=== PATIENT | male | born 2005 | race Caucasian/White ===

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

== ENCOUNTER 2025-01-20 16:13 | Outpatient (CLI) | payer BC, SELFPAY ==
--- NOTE | ~2025-01-20 | XR_ITS ---
EXAMINATION: XR shoulder RT min 2V DATE: 01/20/2025 16:33 INDICATION: Right shoulder pain. TECHNIQUE: 4 views of right shoulder were obtained. COMPARISON: Right shoulder radiographs 03/29/2023 FINDINGS: Alignment is normal. No fracture. Joint spaces are normal. IMPRESSION: 1. Normal right shoulder. Reviewed, dictated and finalized at location A. GE REGISTER NURSE IMPRESSION: 1. Normal right shoulder.
== END 2025-01-20 16:14 | disposition home or self-care (01) ==
LOC: MICIMG 16:16
PROVIDERS: PCP Family Medicine; Visit Provider Nurse Practitioner Family
DX: S49.91XA Unspecified injury of right shoulder and upper arm, initial encounter (principal); X58.XXXA Exposure to other specified factors, initial encounter
CPT/HCPCS: 73030

== ENCOUNTER 2025-07-13 21:17 | Emergency (ER) | payer BC, SELFPAY ==
[2025-07-13] VITALS (11 sets, daily range): BP systolic 126–153; BP diastolic 54–85; PULSE 105–129; RESP 9–18; TEMP 36.9; O2SAT 97–100
--- NOTE | ~2025-07-13 | XR_ITS ---
EXAM: XR pelvis 1-2V DATE: 07/13/2025 21:44 HISTORY: trauma . COMPARISON: None available. FINDINGS: Slight rotation. Normal mineralization. No fracture or dislocation. No lytic or blastic les ion. Joint spaces are maintained. No erosion or periosteal change. Soft tissues within normal limits. IMPRESSION: No acute osseous finding in the pelvis. Reviewed, dictated and finalized at location K.
--- NOTE | ~2025-07-13 | CT_ITS ---
EXAMINATION: CT cervical spine wo con DATE: 07/13/2025 21:51 INDICATION: trauma, neck pain TECHNIQUE: Computed tomography (CT) of the cervical spine was performed without intravenous contrast. Automated exposure control and iterative reconstruction technique were employed. The dose-length pro duct was 524.30 mGy-cm. COMPARISON: None. FINDINGS: Vertebral Body Alignment: Intact. Craniocervical and atlantoaxial alignment: No significant degenerative change. Alignment intact. Osseous structures/fracture: No evidence of a lytic or blastic process in the visualized spine. No e vidence of acute fracture. Cervical soft tissues: The paraspinal soft tissues planes are maintained. Degenerative changes: No significant degenerative changes. IMPRESSION: No acute fracture or traumatic malalignment in the cervical spine. Reviewed, dictated and finalized at location K.
--- NOTE | ~2025-07-13 | CT_ITS ---
EXAMINATION: CT brain wo con DATE: 07/13/2025 21:50 INDICATION: head trauma . TECHNIQUE: Computed tomography (CT) of the head was performed without intravenous contrast. The mA wa s adjusted according to patient size. Iterative reconstruction technique was employed. The dose-lengt h product was 681.00 mGy-cm. COMPARISON: None. FINDINGS: No acute intracranial hemorrhage or extra-axial fluid collection. No hydrocephalus, mass, or herniation. No acute ischemic infarct. Unremarkable dural venous sinus attenuation. No acute osseous abnormality. The aerated spaces are clear. IMPRESSION: No acute intracranial process. Reviewed, dictated and finalized at location K.
--- NOTE | ~2025-07-13 | XR_ITS ---
EXAMINATION: XR chest 1V portable Exam Date/Time: 07/13/2025 21:35 CDT HISTORY: trauma Comparison: None. RESULT: Lines, tubes, and devices: None. Lungs and pleura: Clear. Cardiomediastinal silhouette: Normal. Other: No acute osseous or upper abdominal finding. IMPRESSION: No acute cardiopulmonary process. Reviewed, dictated and finalized at location K.
[2025-07-13 22:01] LABS: Hematocrit 43.6 % (42.0-52.0); Hemoglobin 14.3 g/dL (14.0-18.0); Immature Granulocyte Percent A 0.3 % (0-0.5); Lymphocytes Absolute Auto 1.72 K/mm3 (0.9-3.2); Mean Corpuscular HGB Conc 32.8 g/dl (32-36); Mean Corpuscular Hemoglobin 27.7 pg (26-34); Mean Corpuscular Volume 84.5 fl (80-100); Nucleated Red Blood Cells Absolute Auto 0.000 K/mm3 (0.0-0.012); Nucleated Red Blood Cells Perc 0.0 % (0.0-0.2); Platelet Count Result 200 k/mm3 (150-375); Red Blood Count 5.16 M/mm3 (4.6-6.20); White Blood Count 6.3 K/mm3 (4.5-10.0)
[2025-07-13] MEDS: LACTATED RINGERS 1,000 ML 999 ML IV CONT (22:01)
[2025-07-13] MEDS: fentaNYL CITRATE INJ (*CRX) 100 MCG/2 ML VIAL IV PUSH (22:01)
--- OUTSIDE RECORDS SUMMARY | 2025-07-13 22:03 | XMS_ITS | Continuity of Care Document ---
Author Organization [facility]. If a dditional information is needed, contact Health Information Management at [phone] Address [address] [place] [address] Phone Care Team Providers Care Motion Graphics Artist Name Role Phone Unavailable Unavailable Unavailable Unavailable Unavailable Unavailable Unavailable Unavailable Unavailable Unavailable Unavailable Unavailable Unavailable Unavailable Unavailable Unavailable Unavailable Unavailable Unavailable Unavailable Unavailable Unavailable Unavailable Unavailable Problems Viral gastroenteritis Onset:29-Sep-2024 Demetrio MUELLER Nausea, vomiting and diarrhe a Onset:29-Sep-2024 Demetrio MUELLER Mental Status Cognitive function finding 29-Sep-2024 Allergies and Adverse Reactions No Known Allergies(Allergy) Onset: 29-Sep-2024 Medications ondansetron 4 MG Disintegrat ing Oral Tablet;4 MILLIGRAM PO Q8HR PRN Start:30-Sep-2024 Comments:4 MG PO Q8HR PRN As Needed for Nausea, vomiting 2 ML dicyclomine hydrochlori de 10 MG/ML Injection [Bentyl];20 MILLIGRAM X1ED Quantity:1 Demetrio MUELLER Start:21-Mcu-4581Oah:2023 Comments:[id number] Administration Instructions:FOR INTRAMUSCULAR (IM) USE ONLY ondansetron 2 MG/ML Injectab le Solution [Zofran];4 MILLIGRAM X1ED Quantity:1 Gian MUELLER Start:82-Wpm-2272Ycb:2023 Comments:[id number] 10 ML sodium chloride 9 MG/M L Injection;[id number] Administration Instructions:IV PUSH OVER AT LEAST 2 MINUTES Gian MUELLER Start:35-Uhr-3313Hwr:2023 Comments:[id number] Administration Instructions:IV PUSH OVER AT LEAST 2 MINUTES Social History Smoking Status Never smoked tobacco Recorded: 30-Oct-2024 Results UA WITH CX IF INDICATED Ordered On:29-Sep-2024 C omments:Indication for culture: RiskForSepsis-no oth src 29-Sep-2024 19:28 UA APPEARANCEClear Range:CLEAR UA BILIRUBIN DIPSTICKNEGATIVE Ra nge:NEGATIVE UA BLOOD DIPSTICKNEGATIVE Range: NEGATIVE UA COLORYellow Range:YELLOW UA GLUCOSE DIPSTICKNEGATIVEmg/dL Range:NEGATIVE mg/dL UA KETONE LHAUSCRW82 (2+)mg/dL(Abnormal) Range:NEGATIVE mg/dL UA LEUKOCYTE ESTERAS E DIPSTICKNEGATIVE Range:NEGATIVE UA NITRITE DIPSTICKNEGATIVE Rang e:NEGATIVE UA PH DIPSTICK6.0 Range:5-6 UA PROTEIN DIPSTICKNEGATIVEmg/dL Range:NEGATIVE mg/dL UA SPECIFIC GRAVITY1.025 Range:1 .01-1.025 UMICR REQUIRED?NO UA UROBILINOGEN DIPSTICK1.0mg/dL Range:0.2mg/dL-1mg/dL CBC W/DIFF Ordered On:29-Sep-2024 19:29 BASOPHIL #0.0210*3/uL(Normal) Range:010*3/uL-0.110*3/uL BASOPHIL %0.4% EOSINOPHIL #0.0310*3/uL(Normal) Range:010*3/uL-0.510*3/uL EOSINOPHIL %0.6% WMFMMOZSLH89.2%(Normal) Range:38 .5%-48.5% BAPRFAPGNR75.0g/dL(Normal) Range :12.6g/dL-17.3g/dL IMMATURE GRANULOCYTE #0.0110*3/uL IMMATURE GRANULOCYTE %0.2%(Normal) Range:0%-0.6% LYM #0.6610*3/uL(Low) Range:0.81 0*3/uL-3.310*3/uL LYMPHOCYTE %13.1% MEAN CELL HGB27.6pg(Normal) Rang e:26.6pg-32.7pg MEAN CELL HGB JKBWZHVMEZJUT78.0g/dL(Normal) Range:32.4g/dL-35.6g/dL MEAN CELL DWFKYI31.1fL(Normal) R david:80.8fL-97.7fL MONOCYTE #0.5310*3/uL(Normal) Ra nge:0.310*3/uL-0.910*3/uL MONOCYTE %10.6% MEAN PLATELET SLZLVF17.3fL(High) Range:6.8fL-10.2fL YESSI#3.7710*3/uL(Normal) Range:2. 110*3/uL-7.110*3/uL YESSI%75.1% NUCLEATED RBC#0.0010*3/uL NUCLEATED RBC%0.0{/100_WBCs} Ran ge:NONE SEEN /100 WBC PLATELET CRFQX62702*3/uL(Normal) Range:63233*3/uL-83881*3/uL RED BLOOD CELL5.0810*6/uL(Normal) Range:4.1910*6/uL-5.5210*6/uL RDW CV13.4%(Normal) Range:12.4%- 15.6% WHITE BLOOD CELL5.0210*3/uL(Normal) Range:4.310*3/uL-10.310*3/uL BASIC METABOLIC PROF W/REFLEX Ordered On:29-Sep-2024 19:40 ANION GAP6(Normal) Range:5-15 BLOOD UREA MWYSFNIR25tq/dL(Normal) Range:7mg/dL-25mg/dL CALCIUM9.0mg/dL(Normal) Range:8. 5mg/dL-10.1mg/dL UKILOFBU70cifk/L(Normal) Range:9 8mmol/L-107mmol/L CARBON HANPQSN79.6mmol/L(Normal) Range:21mmol/L-32mmol/L ESTIMATED CREATININE XFJCA353.0mL/min CREAT0.87mg/dL(Normal) Range:0.7 mg/dL-1.3mg/dL GFR CKD-EPI 4638857.475mL/min Ra nge:59mL/min-0 XUOYDQD096(Normal) Range:70-110 POTASSIUM3.4mmol/L(Low) Range:3. 5mmol/L-5.1mmol/L RKBNAY301rycg/L(Normal) Range:13 6mmol/L-145mmol/L LIVER PROFILE Ordered On:29-Sep-2024 19:40 ALBUMIN3.8g/dL(Normal) Range:3 .4g/dL-5g/dL ALK OXBC34B/L(Normal) Range:45U/ L-117U/L SGPT/ALT27U/L(Normal) Range:16U/ L-63U/L SGOT/AST23U/L(Normal) Range:15U/ L-37U/L BILIRUBIN DIRECT0.2mg/dL(Normal) Range:0mg/dL-0.3mg/dL T BILI0.6mg/dL(Normal) Range:0mg /dL-1mg/dL T PROTEIN7.0g/dL(Normal) Range:6 .4g/dL-8.2g/dL LIPASE Ordered On:29-Sep-2024 19:40 SXOPZW98Y/L(Normal) Range:16U/ L-77U/L Comments:NEW REFERENCE RANGE MAGNESIUM Ordered On:29-Sep-2024 19:40 MAGNESIUM1.9mg/dL(Normal) Rang e:1.8mg/dL-2.4mg/dL Vital Signs 29-Sep-2024 20:00 Pulse67 Comments:67 O2 SAT98% Comments:98 BP Qfmslevk342pc[Hg] Comments:13 5 BP Btxuwvnis56dw[Hg] Comments:65 29-Sep-2024 19:30 Pulse68 Comments:68 O2 SAT98% Comments:98 BP Witkuham439fv[Hg] Comments:13 9 BP Sylofvjmc21bo[Hg] Comments:64 29-Sep-2024 19:17 Pulse64 Comments:64 O2 SAT95% Comments:95 BP Iirtltck271zj[Hg] Comments:14 0 BP Neezoehus42dp[Hg] Comments:62 29-Sep-2024 17:53 TEMP KPJRXDZ51.8c Comments:36.8 Pulse97 Comments:97 Respiratory Rate18 Comments:18 O2 SAT98% Comments:98 BP Fykiklxc949vv[Hg] Comments:12 6 BP Ofqsytefv69yl[Hg] Comments:78 Bqvgxt134ma Comments:188.000 Xpmiwy40.4kg Comments:79.400 29-Sep-2024 17:53 BMI22.4kg/m2 Comments:22.4 Encounters Emergency Encounter Reason:PUI-ABDOMINAL OAMG-WLJESDRH-PFFBPVKD Encounter Diagnosis:Cough,Viral intestinal infection, unspecified 29-Sep-2024 17:[id number] 20:20 May Kent MD (Attending) [facility] Discharge Disposition:Discharged to home or self care (routine discharge) Demetrio MUELLER-29-Sep-2024 [facility] ([facility])EMERGENCY PROVIDER REPORTREPORT#:[id number] REPORT STATUS: SignedDATE:09/29/24 TIME: 1848PATIENT: WILBERT MATIAS UNIT #: [id number]#: [id number] ROOM/BED:: 05 LOCATION: FSEDAGE: 19 SEX: M PCP: NO PRIMARY OR FAMILY PHYSICIANSERVICE AUTHOR: Sabrina Lai SRV REP SRV TM: 1848* ALL edits or amendments must be made on the electronic/computer document *SABRINA LAI 09/29/241848:HPI-General IllnessFree Text HPI NotesFree Text HPI NotesHPI 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 Also having mild cough and congestion. 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 Denies fever,urinary changes, bloody stool/emesis, chest pain, SOB, sore throat, flank pain,or lethargy. Denies known sick contacts. Denies diet changes or recent travel.Denies trauma.Physical exam Gene ral: Awake, alert, and oriented. No acute distress. Well-appearing andwell- hydrated.Skin: Warm, dry, and intact. Appropriate color. Nailbeds pink withoutcyanosis or clubbingHead: Normocephalic and atraumatic.Eyes: Conjunctivae clear without exudate or hemorrhage, PEERLENT: External ear intact without skin changes. Gross hearing intact. Externalnose intact. Moist mucous membranes. No difficulty swallowing secretions.Neck: The neck is supple. Trachea is midline.Cardio/pulmonary: No signs of respiratory distress. Patient is speaking incomplete sentences without difficulty. Normal S1 and S2. Normal heart rate andrhythm. Lungs CTA bilaterally without wheezes, rhonchi, or stridor.MSK: Bilateral upper and lower extremities are atraumatic in appearance. Noabnormal movement noted.Neuro: Motor function is normal. Cerebellar function intact. Memory andthought process intact. No gait abnormalities.Psych: Appropriate mood and affect. No visual or auditory hallucinations.Abdomen: Mild epigastric TTP. Soft without distention. No pulsatile orpalpable masses. No overlying skin changes. No guarding, rigidity, or rebound. No peritoneal signs. Negative Blancas sign. No McBurney's point TTP. No CVATbilaterally.Medical decision making Differential diagnoses: Acute viral syndrome, gastroenteritis, acute abdomen,acute appendicitis, intra- abdominal abscess, ischemia, dehydration, electrolyteimbalanceBenign abdominal exam. Patient is nontoxic and well-appearing with normal vitalsigns.. Urine and Bloodwork negative for acute finding. No indication forimaging, suspect viral gastroenteritis. IV Zofran given, feeling much better re-evaluation and p.o. challenge passed. Discussed possible sx etiologies and allresults with pt. VS stable and pt in NAD upon discharge. Low clinical suspicionfor sepsis, acute abdomen, abdominal perforation, ischemia, or abdominalabscess. Discussed PCP follow up regarding these sx and return to ED ifworsening sx. Strict return precautions discussed. All questions answered andpt confirmed understanding.Documentation for this chart was dictated and transcribed using the [employer] the Bet system. Dictation occurs and grammatical errors may have occurredduring the electronic transcriptions process. Frequently, incorrect pronounsmay be used. The medical provider for this chart reserves the right to correcterrors at a later time as necessary. If any clarifications are needed regardingthe documentation of care provided to this patient, please contact the medicalprovider for this patient.GeneralInitial Greet Date/Time 09/29/241736PresentationChief Complaint __ (N/V/D), Abdominal painPast Medical History - AdultStated Complaint PUI-ABDOMINAL AMQI-MHPKCZHT-TLAVKQHBZmwlmqegwHvltf Allergies:No Known Allergies (09/29/24)Smoking status for patients 13 years old or older: Never SmokerPhysical ExamVital SignsVital SignsFirst Documented: Result Date Time Pulse Ox 98 09/29 1753 B/P 126/78 09/29 1753 B/P Mean 93.9 09/29 1753 O2 Delivery Room air 09/29 1753 Temp 98.2 09/29 1753 Pulse 97 09/29 1753 Resp 18 09/29 1753Last Documented: Result Date Time Pulse Ox 98 09/29 2000 B/P 135/65 09/29 2000 B/P Mean 92 09/29 2000 Pulse 67 09/29 2000 O2 Delivery Room air 09/29 1753 Temp 98.2 09/29 1753 Resp 18 09/29 1753Review of Vital Signs ReviewedInterpretation DiagnosticsLab Results InterpretationResultsLaboratory Tests09/29/241904:[Embedded Image Not Available]Laboratory Tests: 09/29 190 Chemistry Sodium (136 - 145 mmol/L) 137 Potassium (3.5 - 5.1 mmol/L) 3.4 L Chloride (98 - 107 mmol/L) 99 Carbon Dioxide (21.0 - 32.0 MMOL/L) 31.6 Anion Gap (5 - 15) 6 BUN (7 - 25 MG/DL) 13 Creatinine (0.70 - 1.30 MG/DL) 0.87 Estim Creat Clear Calc (mL/min) 158.0 Est GFR (CKD-EPI) (>59 mL/min) 127.475 Glucose (70 - 110) 100 Calcium (8.5 - 10.1 MG/DL) 9.0 Magnesium (1.8 - 2.4 MG/DL) 1.9 Total Bilirubin (0.0 - 1.0 mg/dL) 0.6 Direct Bilirubin (0.0 - 0.3 MG/DL) 0.2 AST (15 - 37 UNITS/L) 23 ALT (16 - 63 UNITS/L) 27 Alkaline Phosphatase (45 - 117 UNITS/L) 83 Total Protein (6.4 - 8.2 g/dL) 7.0 Albumin (3.4 - 5.0 G/DL) 3.8 Lipase (16 - 77 U/L) 17 Hematology WBC (4.30 - 10.30 10*3/uL) 5.02 RBC (4.19 - 5.52 10*6/uL) 5.08 Hgb (12.6 - 17.3 g/dL) 14.0 Hct (38.5 - 48.5 %) 41.2 MCV (80.8 - 97.7 fL) 81.1 MCH (26.6 - 32.7 pg) 27.6 MCHC (32.4 - 35.6 g/dL) 34.0 RDW Coeff of Wilder (12.4 - 15.6 %) 13.4 Plt Count (151 - 324 10*3/uL) 200 MPV (6.8 - 10.2 fL) 10.3 H Immature Gran % (Auto) (0.0 - 0.6 %) 0.2 Neut % (Auto) (%) 75.1 Lymph % (Auto) (%) 13.1 [place] % (Auto) (%) 10.6 Eos % (Auto) (%) 0.6 Baso % (Auto) (%) 0.4 Nucleat RBC Rel Count (NONE SEEN /100 WBC) 0.0 Neut # (Auto) (2.10 - 7.10 10*3/uL) 3.77 Lymph # (Auto) (0.80 - 3.30 10*3/uL) 0.66 L [place] # (Auto) (0.30 - 0.90 10*3/uL) 0.53 Eos # (Auto) (0.00 - 0.50 10*3/uL) 0.03 Baso # (Auto) (0.00 - 0.10 10*3/uL) 0.02 Immature Gran # (Auto) (10*3/uL) 0.01 Absolute Nucleated RBC (10*3/uL) 0.00 Urines Urine Color (YELLOW) Yellow Urine Appearance (CLEAR) Clear Urine pH (5.0 - 6.0) 6.0 Ur Specific [place] (1.010 - 1.025) 1.025 Urine Protein (NEGATIVE mg/dL) NEGATIVE Urine Glucose (UA) (NEGATIVE mg/dL) NEGATIVE Urine Ketones (NEGATIVE mg/dL) 40 (2+) H Urine Blood (NEGATIVE) NEGATIVE Urine Nitrite (NEGATIVE) NEGATIVE Urine Bilirubin (NEGATIVE) NEGATIVE Urine Urobilinogen (0.2 - 1.0 mg/dL) 1.0 Ur Leukocyte Esterase (NEGATIVE) NEGATIVE Ur Microscopic Indic NORe-Evaluation MDMED CourseMedication(s) OrderedMedication(s) Ordered:Autonomic Drugs Sig/Kiara Start time Last Medication Dose Route Stop Time Status Admin Dicyclomine HCl 20 MG X1ED ONE 09/29 1812 DC 09/29 IM 09/29 1813 191Gastrointestinal Drugs Sig/Kiara Start time Last Medication Dose Route Stop Time Status Admin Famotidine 20 MG X1ED ONE 09/29 1754 DC 09/29 Sodium Chloride 10 ML IV 09/29 Ondansetron HCl 4 MG X1ED ONE 09/29 175 DC 09/29 IV 09/29 1755 191Patient Discharge DepartureVital Signs/ConditionVital SignsFirst Documented: Result Date Time Pulse Ox 98 09/29 1753 B/P 126/78 09/29 1753 B/P Mean 93.9 09/29 1753 O2 Delivery Room air 09/29 1753 Temp 98.2 09/29 1753 Pulse 97 09/29 1753 Resp 18 09/29 1753Last Documented: Result Date Time Pulse Ox 98 09/29 2000 B/P 135/65 09/29 2000 B/P Mean 92 09/29 2000 Pulse 67 09/29 2000 O2 Delivery Room air 09/29 1753 Temp 98.2 09/29 1753 Resp 18 09/29ll vital signs available at the time of this entry have been reviewed.Clinical ImpressionClinical ImpressionPrimary Impression: Viral gastroenteritisSecondary Impressions: Nausea vomiting and diarrheaDisposition DecisionDischarge )( Discharged to Home Yes )( Time 2003 )( Date 09/29/24Discharge/Care PlanCounseled Regarding Diagnosis, Lab results, Prescriptions, Need for follow-up,When to return to ED(Auto) PrescriptionsCurrent Visit ScriptsOndansetron (Zofran Odt) 4 MG PO Q8HR PRN PRN Nausea, vomiting Ondansetron (Zofran Odt) 4 MG PO Q8HR PRN PRN Nausea, vomiting #30 TABDICYCLOMINE (BENTYL) 20 MG PO QID PRN abdominal cramping DICYCLOMINE (BENTYL) 20 MG PO QID PRN abdominal cramping #20 TABPatient Instructions ED Gastroenteritis, Viral (Adult), ED Standard Educationfor ...Additional InstructionsPlease take any medications as prescribed. Discussed proper diet and fluidintake.Tylenol and Motrin as needed for pain and fever as directed by your familyphysician. Please do no take more than 1000mg tylenol every 8 hours or 800mgibuprofen every 8 hours. May alternate tylenol and ibuprofen every 4 hours asneeded.Bananas, rice, apples, toast, and clear liquids as needed for indigestion,nausea, vomiting, or diarrhea. Please drink plenty of fluids. OTC Gas-X, Tums,Antacids, or Pepto-bismol as directed for indigestion. Laxatives, stoolsofteners, and fiber supplementation as directed for constipation.If you develop worsening symptoms, please seek further medical attention. Redflags include: severe worsening abdominal pain, chest pain, trouble breathing,fever>100.4, incontinence, dark/bloody stools, bloody urine, intractiblevomiting, dizziness, loss of consciousness, palpitations, or signs ofdehydration.Please call your family physician and inform them regarding your ED visit today.This visit should not be intended as a replacement for a regular examinationwith your doctor. We answered all questions today during this visit and thepatient confirmed agreement and understanding of treatment plan.Departure FormsRETURN TO WORK/YANIRA SUAREZ MD 09/30/24 0718:Patient Discharge DepartureDischarge/Care PlanReferralsProvider Group: [facility] Address: [address] [place] [address]. [place], [place] [address]Nahhiarnefk Physician Note MidLv Saw Pt AloneI have reviewed the PA/CORRECTIONAL FOOD SERVICE SUPERVISOR's note and plan of care. I was available forconsultation as needed at all times during the patient's visit in the emergencydepartment. I agree with the clinical impression, plan and disposition. at 2006 at 0719RPT #: [id number] OF REPORT Plan of Treatment Please take any medications as prescribed. Discussed proper diet and fluid intake. Tylenol and Motrin as needed for pain and fever as directed by your family physician. Please do no take more than 1000mg tylenol every 8 hours or 800mg ibuprofen every 8 hours. May alternate tylenol and ibuprofen every 4 hours as needed. Bananas, rice, apples, toast, and clear liquids as needed for indigestion, nausea, vomiting, or diarrhea. Please drink plenty of fluids. OTC Gas-X, Tums, Antacids, or Pepto-bismol as directed for indigestion. Laxatives, stool softeners, and fiber supplementation as directed for constipation. If you develop worsening symptoms, please seek further medical attention. Red flags include: severe worsening abdominal pain, chest pain, trouble breathing, fever>100.4, incontinence, dark/bloody stools, bloody urine, intractible vomiting, dizziness, loss of consciousness, palpitations, or signs of dehydration. Please call your family physician and inform them regarding your ED visit today. This visit should not be intended as a replacement for a regular examination with your doctor. We answered all questions today during this visit and the patient confirmed agreement and understanding of treatment plan. Future Tests Future scheduled test information is unavailable Pending Tests Pending diagnostic test information is unavailable Future Visits Future appointment information is unavailable Referrals to Other Providers Reason for Referral Referral Start Date Provider Provider Contact Information Provider Address [facility] Work Phone: [address] [place] [phone] Future Procedures Future procedure information is unavailable Future Medications Future medication information is unavailable Patient Instructions Instruction Admit Date ED Standard Education for ... September 292023 4:29pm ED Gastroenteritis, Viral (Adult) Octobe r 2023 4:29pm Assessments Diagnosis Onset Date Resolution Status Admit Date Viral gastroenteritis Active Aug gary 2023 4:29pm Nausea vomiting and diarrhea Active September 29, 2024 4:29pm
--- OUTSIDE RECORDS SUMMARY | 2025-07-13 22:03 | XMS_ITS | Clinical Summary ---
Author Organization [facility] Address [address] [place] [address] Care Team Providers Care Rn Advice Name Role Phone Augustina Abbott MD Primary Care Provider [phone] Source Comments [facility],non-owned Affiliates and Associated Physician Practices is amultiple site organization consisting of ambulatory clinics and hospital sitesin [place], [place], [place] and [place]. This disclosure is being madepursuant to the Care Everywhere program and may not contain all information available regarding this patient. Last updated 18.[facility] Allergies No known active allergies Medications * Be aware that medications may not be up to date on this document. Alwaysverify current medications with the patient. No known medications Social History Tobacco Use Types Packs/Day Years Used Date Smoking Tobacco: Never Sex and Gender Information Value Date Recorded Sex Assigned at Not on file Legal Sex Male 9:53 AM CDT Gender Identity Not on file Sexual Orientation Not on file Last Filed Vital Signs Vital Sign Reading Time Taken Comments Blood Pressure 100/52 05/11/2017 10:10 AM CDT Pulse 83 05/11/2017 10:10 AM CDT Temperature 36.9 C (98.5 F) 05/11/2017 10:10 AM CDT Respiratory Rate 18 05/11/2017 10:10 AM CDT Oxygen Saturation 99% 05/11/2017 10:10 AM CDT Inhaled Oxygen Concentration - - Weight 38.6 kg (85 lb) 05/11/2017 10:10 AM CDT Height 149.9 cm (4' 11) 05/11/2017 10:10 AM CDT Body Mass Index 17.17 05/11/2017 10:10 AM CDT Body Mass Index Percentile 40.94% 05/11/2017 10: 10 AM CDT Growth Chart: CDC (Boys, 2-2 0 Years) Plan of Treatment Health Maintenance Due Date Last Done Comments HIV SCREENING 2020 HPV VACCINE (1 - Male 3-dose series) 2020 MENINGOCOCCAL (Group B) VACC INE SHARED DECISION-MAKING (1 of 2 - Standard) 2021 HEPATITIS C SCREENING 07/13/2023 DTAP/TDAP/TD VACCINES (1 - Tdap) 2024 HEPATITIS B VACCINE (1 of 3 - 19+ 3-dose series) 2024 COVID-19 VACCINE (1 - 2023-2 5 season) 2024 DEPRESSION SCREENING 12/01/2024 INFLUENZA VACCINE (#1) 2025 ZOSTER VACCINE (1 of 2) 2055 HIB VACCINE Aged Out No longer eligi ble based on patient's age to complete this topic MENINGOCOCCAL GROUPS A/C/Y/W VACCINE Aged Out No longer eligible b ased on patient's age to complete this topic PNEUMOCOCCAL VACCINE Aged Out No long er eligible based on patient's age to complete this topic Care Teams Rn Advice Relationship Specialty Start Date End Date Augustina Abbott MD [address] [place] [address] PCP - General Pediatrics 05/11/17
[2025-07-13 22:11] LABS: Alanine Aminotransferase 20 U/L (6-50); Albumin Level 4.4 g/dL (3.7-5.6); Alkaline Phosphatase 62 U/L (58-237); Anion Gap 12 mmol/L (4-12); Aspartate Amino Transferase 25 U/L (17-59); Bilirubin,Total 0.8 mg/dL (0.2-1.3); Blood Urea Nitrogen 10 mg/dL (8-21); Calcium 9.4 mg/dL (8.9-10.7); Carbon Dioxide 22 mmol/L (22-30); Chloride 104 mmol/L (98-107); Estimated Glomerular Filt Rate > 60; Glucose 120 mg/dL (65-110); Potassium 3.3 mmol/L (3.4-5.0); Sodium 138 mmol/L (134-143); Total Protein 7.1 g/dL (6.3-8.6)
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
--- NOTE | 2025-07-14 08:56 | ECG_ITS ---
Test Date: 2025-07-13 21:17:48 Measurements Intervals [place] Rate: 122 P: 72 MI: 167 QRS: 92 QRSD: 104 T: -26 QT: 317 QTc: 452 Interpretive Statements SINUS TACHYCARDIA RIGHT AXIS DEVIATION MINIMAL Q WAVES- INFERIOR LEADS BORDERLINE ST-T WAVE ABNORMALITY- ANTEROLAT/INF LEADS ABNORMAL ECG No previous ECG available for comparison Electronically Signed On 07-14-2025 09:25:03 CDT by Darrick Ceron D.O.
== END 2025-07-13 23:16 | disposition short-term general hospital (02) ==
PROVIDERS: Emergency Provider Student in an Organized Health Care Education/Training Program; PCP Family Medicine
DX: S06.9X1A Unspecified intracranial injury with loss of consciousness of 30 minutes or less, initial encounter (principal); G83.82 Anterior cord syndrome; S19.80XA Other specified injuries of unspecified part of neck, initial encounter; Y04.2XXA Assault by strike against or bumped into by another person, initial encounter
CPT/HCPCS: 36415; 70450; 71045; 72125; 72170; 80053; 85025; 93005; 96361; 96374; 99285; J3010; J7120